=== PATIENT | female | born 1980 | race Caucasian/White ===

== ENCOUNTER 2017-09-03 14:01 | Emergency (ER) | payer MEDICAID ==
[2017-09-03 17:58] LABS: ADD MAN DIFF? NO
[2017-09-03 18:01] LABS: ABNORMAL IP MESSAGE 1; BASOPHILS % 0.4 % (0.0-2.0); EOSINOPHILS % 0.6 % (0.0-7.0); HEMATOCRIT 36.5 % (37.0-47.0); HEMOGLOBIN 12.2 g/dl (12.0-16.0); LYMPHOCYTES # 0.6 10^3/ul (0.8-2.9); LYMPHOCYTES % 7.9 % (15.0-51.0); MEAN CORPUSCULAR HEMOGLOBIN 27.3 pg (29.0-33.0); MEAN CORPUSCULAR HGB CONC 33.4 g/dl (32.0-37.0); MEAN CORPUSCULAR VOLUME 81.7 fl (82.0-101.0); MEAN PLATELET VOLUME 11.9 fl (7.4-10.4); MONOCYTE # 0.3 10^3/ul (0.3-0.9); MONOCYTES % 4.6 % (0.0-11.0); NEUTROPHILS % 85.6 % (39.0-77.0); PLATELET COUNT 172 10^3/UL (140-415); RED BLOOD COUNT 4.47 10^6/ul (4.20-5.40); RED CELL DISTRIBUTION WIDTH 13.2 % (11.5-14.5)
[2017-09-03] MEDS: SODIUM CHLORIDE 0.9% 1L BAG IV* (18:02)
[2017-09-03] MEDS: ACETAMINOPHEN 325 MG TAB PO (18:08)
[2017-09-03 18:09] LABS: POSITIVE DIFF @See below
[2017-09-03 18:22] LABS: ALANINE AMINOTRANSFERASE 118 IU/L (13-69); ALBUMIN 4.1 g/dl (3.3-4.9); ALBUMIN/GLOBULIN RATIO 1.24; ALKALINE PHOSPHATASE 64 IU/L (42-121); AMYLASE 88 U/L (11-123); ANION GAP 16 (8-16); ASPARTATE AMINO TRANSFERASE 130 IU/L (15-46); BILIRUBIN,INDIRECT 0.1 mg/dl (0-1.1); BILIRUBIN,TOTAL 0.1 mg/dl (0.2-1.3); BLOOD UREA NITROGEN 5 mg/dl (7-20); CALCIUM 9.7 mg/dl (8.4-10.2); CARBON DIOXIDE 21 mmol/L (21-31); CHLORIDE 103 mmol/L (97-110); CREATININE 0.51 mg/dl (0.44-1.00); GLUCOSE 124 mg/dl (70-220); LIPASE 110 U/L (23-300); POTASSIUM 3.8 mmol/L (3.5-5.1); SODIUM 136 mmol/L (135-144); TOTAL PROTEIN 7.4 g/dl (6.1-8.1)
[2017-09-03 19:39] LABS: ADD UMIC NO; UR ASCORBIC ACID NEGATIVE (NEGATIVE); UR BILIRUBIN (Dip) NEGATIVE (NEGATIVE); UR BLOOD (Dip) NEGATIVE (NEGATIVE); UR CLARITY CLEAR (CLEAR); UR COLOR YELLOW (YELLOW); UR GLUCOSE (Dip) NEGATIVE (NEGATIVE); UR KETONES (Dip) TRACE mg/dL (NEGATIVE); UR LEUKOCYTE ESTERASE (Dip) NEGATIVE Leu/ul (NEGATIVE); UR NITRITE (Dip) NEGATIVE (NEGATIVE); UR SPECIFIC GRAVITY (Dip) 1.006 (1.003-1.030); UR TOTAL PROTEIN (Dip) NEGATIVE (NEGATIVE); UR UROBILINOGEN (Dip) NEGATIVE (NEGATIVE)
== END 2017-09-03 20:20 | disposition home or self-care (01) ==
LOC: FTE 14:01
DX: O20.0 Threatened abortion (principal); R50.9 Fever, unspecified; R05 Cough; Z3A.14 14 weeks gestation of pregnancy
CPT/HCPCS: 36415; 76801; 80053; 81003; 82150; 83690; 84702; 85025; 86900; 86901; 87086; 87400; 96360; 96361; 99285-25

== ENCOUNTER 2017-10-17 14:28 | Outpatient (CLI) | payer MEDICAID ==
[2017-10-17 16:51] LABS: ADD UMIC NO; UR ASCORBIC ACID 40 mg/dL (NEGATIVE); UR BILIRUBIN (Dip) NEGATIVE (NEGATIVE); UR BLOOD (Dip) NEGATIVE (NEGATIVE); UR CALCIUM OXALATE CRYSTAL MODERATE /HPF (NONE SEEN); UR CLARITY SLIGHTLY CLOUDY (CLEAR); UR COLOR YELLOW (YELLOW); UR GLUCOSE (Dip) 1+ mg/dL (NEGATIVE); UR KETONES (Dip) NEGATIVE (NEGATIVE); UR LEUKOCYTE ESTERASE (Dip) NEGATIVE Leu/ul (NEGATIVE); UR NITRITE (Dip) NEGATIVE (NEGATIVE); UR RBC 12 /HPF (0-5); UR SPECIFIC GRAVITY (Dip) 1.029 (1.003-1.030); UR SQUAMOUS EPITHELIAL CELL FEW /HPF (FEW); UR TOTAL PROTEIN (Dip) NEGATIVE (NEGATIVE); UR UROBILINOGEN (Dip) 1+ mg/dL (NEGATIVE); UR WBC 1 /HPF (0-5)
== END 2017-10-17 17:45 | disposition home or self-care (01) ==
LOC: OBT 14:28 → L-D 14:31 → OBT 17:45
DX: O26.843 Uterine size-date discrepancy, third trimester (principal); O36.8130 Decreased fetal movements, third trimester, not applicable or unspecified; Z3A.34 34 weeks gestation of pregnancy
CPT/HCPCS: 76817; 81001; 81003

== ENCOUNTER 2018-02-06 15:14 | Outpatient (CLI) | payer MEDICAID ==
[2018-02-06 17:40] LABS: RUPTURE FETAL MEMBRANES NEGATIVE (NEGATIVE)
== END 2018-02-06 17:58 | disposition home or self-care (01) ==
LOC: OBT 15:14 → L-D 15:15 → OBT 17:58
DX: O62.9 Abnormality of forces of labor, unspecified (principal); O09.523 Supervision of elderly multigravida, third trimester; Z3A.37 37 weeks gestation of pregnancy
CPT/HCPCS: 76818; 84112

== ENCOUNTER 2018-02-13 10:34 | Inpatient (IN) | payer MEDICAID ==
[~2018-02-13 10:34] MED LIST: OXYTOCIN 30 UNITS/LR 500 ML BAG IV
[2018-02-13] MEDS: LACTATED RINGER'S 1,000 ML IV ×2 (11:30→15:06)
[2018-02-13 12:02] LABS: RUPTURE FETAL MEMBRANES NEGATIVE (NEGATIVE)
[2018-02-13] MEDS ORDERED: CARBOPROST 250 MCG INJ IM ×2 (15:30→19:00)
[2018-02-13] MEDS ORDERED: METHYLERGONOVINE 0.2 MG INJ IM ×2 (15:30→19:00)
[2018-02-13] MEDS ORDERED: OXYTOCIN 30 UNITS/LR 500 ML IV ×2 (15:30→19:00)
[2018-02-13] MEDS ORDERED: MISOPROSTOL 200 MCG TAB PR ×2 (15:30→19:00)
[2018-02-13] MEDS ORDERED: CEFAZOLIN 2 GM/50 ML (PMX) 50 ML IV (15:30)
[2018-02-13 15:32] LABS: WHITE BLOOD COUNT 5.8 10^3/ul (4.8-10.8)
[2018-02-13 15:32] LABS: ABNORMAL IP MESSAGE 1; HEMATOCRIT 40.7 % (37.0-47.0); HEMOGLOBIN 13.1 g/dl (12.0-16.0); MEAN CORPUSCULAR HGB CONC 32.2 g/dl (32.0-37.0); MEAN CORPUSCULAR VOLUME 83.9 fl (82.0-101.0); PLATELET COUNT 108 10^3/UL (140-415); RED BLOOD COUNT 4.85 10^6/ul (4.20-5.40); RED CELL DISTRIBUTION WIDTH 14.8 % (11.5-14.5)
[2018-02-13 15:33] LABS: POSITIVE DIFF @See below
[2018-02-13 15:34] LABS: ADD MAN DIFF? YES
[2018-02-13] MEDS: MAGNESIUM SULFATE 4 GM/100 ML 100 ML IV (15:41)
[2018-02-13 15:44] LABS: URIC ACID 4.4 mg/dl (3.1-7.9)
[2018-02-13 15:44] LABS: ALANINE AMINOTRANSFERASE 40 IU/L (13-69); ALBUMIN 3.4 g/dl (3.3-4.9); ALBUMIN/GLOBULIN RATIO 1.03; ALKALINE PHOSPHATASE 172 IU/L (42-121); ANION GAP 14 (8-16); ASPARTATE AMINO TRANSFERASE 28 IU/L (15-46); BILIRUBIN,INDIRECT 0.4 mg/dl (0-1.1); BILIRUBIN,TOTAL 0.4 mg/dl (0.2-1.3); BLOOD UREA NITROGEN 9 mg/dl (7-20); CALCIUM 9.7 mg/dl (8.4-10.2); CARBON DIOXIDE 21 mmol/L (21-31); CHLORIDE 108 mmol/L (97-110); CREATININE 0.59 mg/dl (0.44-1.00); GLUCOSE 65 mg/dl (70-220); POTASSIUM 3.9 mmol/L (3.5-5.1); SODIUM 139 mmol/L (135-144); TOTAL PROTEIN 6.7 g/dl (6.1-8.1)
[2018-02-13 15:50] LABS: INR 0.92; PROTIME 12.4 Sec (11.9-14.9)
[2018-02-13 15:51] LABS: PARTIAL THROMBOPLASTIN TIME 27.8 Sec (25.0-35.0)
[2018-02-13] MEDS: MAGNESIUM SULFATE 20 GM/500 ML 500 ML IV (16:08)
[2018-02-13 16:11] LABS: ANISOCYTOSIS 2+ (0-0); BAND NEUTROPHILS #M 0.2 10^3/ul (0.0-0.6); BAND NEUTROPHILS % (M) 4 % (0-4); EOSINOPHILS % (M) 3 % (0-7); ERYTHROBLAST% (NRBC) (M) 1 % (0-0); GIANT THROMBO% (M) 1 % (0-0); LYMPHOCYTES #M 1.4 10^3/ul (0.8-2.9); LYMPHOCYTES % (M) 25 % (15-51); MICROCYTOSIS 1+ (0-0); MONOCYTE #M 0.1 10^3/ul (0.3-0.9); MONOCYTES % (M) 2 % (0-11); PLATELET ESTIMATE DECREASED; POLYCHROMASIA 1+ (0-0); SEG NEUT #M 3.8 10^3/ul (1.6-7.5); SEGMENTED NEUTROPHILS (M) % 66 % (39-77); SMUDGE%M 4 % (0-0)
[2018-02-13] MEDS ORDERED: OXYTOCIN 10 UNIT INJ (17:31)
[2018-02-13] MEDS ORDERED: BUPIVACAINE 0.75%/DEXT (SPINAL) 2 ML INJ (17:31)
[2018-02-13] MEDS ORDERED: morphine SULFATE/PF (10 MG/10 ML) INJ (17:31)
[2018-02-13] MEDS ORDERED: PHENYLephrine (100 MCG/ML) 5ML SYG (17:31)
[2018-02-13] MEDS ORDERED: METOCLOPRAMIDE 10 MG INJ (18:05)
[2018-02-13] MEDS ORDERED: DEXAMETHASONE 4 MG/ML 1 ML INJ (18:05)
[2018-02-13] MEDS ORDERED: KETOROLAC 30 MG INJ (18:05)
[2018-02-13] MEDS ORDERED: ONDANSETRON 4 MG INJ (18:05)
[2018-02-13] MEDS ORDERED: morphine 2 MG INJ IV (19:00)
[2018-02-13] MEDS ORDERED: NALBUPHINE HCL (10 MG/1 ML) INJ IV (19:00)
[2018-02-13] MEDS ORDERED: LANOLIN 7 GM TUBE TOP (19:00)
[2018-02-13] MEDS ORDERED: ACETAMINOPHEN 500 MG TAB PO (19:00)
[2018-02-13] MEDS ORDERED: HYDROmorphONE 0.5 MG/0.5 ML SYG IV ×2 (19:00)
[2018-02-13] MEDS ORDERED: DIPHENHYDRAMINE 50 MG INJ IV (19:00)
[2018-02-13] MEDS ORDERED: NALOXONE (0.4 MG/ML) INJ IV (19:00)
[2018-02-13] MEDS ORDERED: HYDROCODONE/APAP (5/325) TAB PO (19:00)
[2018-02-13 19:18] LABS: ADD UMIC YES; UR ASCORBIC ACID NEGATIVE (NEGATIVE); UR BILIRUBIN (Dip) NEGATIVE (NEGATIVE); UR BLOOD (Dip) 1+ mg/dL (NEGATIVE); UR CLARITY CLEAR (CLEAR); UR COLOR YELLOW (YELLOW); UR GLUCOSE (Dip) 2+ mg/dL (NEGATIVE); UR KETONES (Dip) 1+ mg/dL (NEGATIVE); UR LEUKOCYTE ESTERASE (Dip) NEGATIVE Leu/ul (NEGATIVE); UR NITRITE (Dip) NEGATIVE (NEGATIVE); UR RBC 4 /HPF (0-5); UR SPECIFIC GRAVITY (Dip) 1.015 (1.003-1.030); UR TOTAL PROTEIN (Dip) 2+ mg/dl (NEGATIVE); UR UROBILINOGEN (Dip) NEGATIVE (NEGATIVE); UR WBC 2 /HPF (0-5)
[2018-02-13] MEDS: ONDANSETRON 4 MG INJ IV (19:45)
[2018-02-13] MEDS: OXYTOCIN 30 UNITS/LR 500 ML IV (19:50)
[2018-02-13] MEDS: morphine 2 MG INJ IV (20:31)
[2018-02-13] MEDS: SENNA/DOCUSATE NA (8.6MG/50MG) TAB PO (21:00)
[2018-02-14] MEDS: morphine 2 MG INJ IV (00:28)
[2018-02-14] MEDS: CEFAZOLIN 2 GM/50 ML (PMX) 50 ML IV ×3 (01:37→11:00)
[2018-02-14] MEDS: LACTATED RINGER'S 1,000 ML IV ×3 (07:09→23:00)
[2018-02-14 07:22] LABS: ADD MAN DIFF? NO
[2018-02-14 07:40] LABS: WHITE BLOOD COUNT 9.3 10^3/ul (4.8-10.8)
[2018-02-14 07:40] LABS: ABNORMAL IP MESSAGE 1; BASOPHILS % 0.2 % (0.0-2.0); EOSINOPHILS % 0.1 % (0.0-7.0); HEMATOCRIT 32.4 % (37.0-47.0); HEMOGLOBIN 10.3 g/dl (12.0-16.0); LYMPHOCYTES # 1.7 10^3/ul (0.8-2.9); LYMPHOCYTES % 17.8 % (15.0-51.0); MEAN CORPUSCULAR HEMOGLOBIN 26.8 pg (29.0-33.0); MEAN CORPUSCULAR HGB CONC 31.8 g/dl (32.0-37.0); MEAN CORPUSCULAR VOLUME 84.4 fl (82.0-101.0); MONOCYTE # 0.6 10^3/ul (0.3-0.9); MONOCYTES % 6.5 % (0.0-11.0); NEUTROPHILS % 75.1 % (39.0-77.0); PLATELET COUNT 122 10^3/UL (140-415); RED BLOOD COUNT 3.84 10^6/ul (4.20-5.40)
[2018-02-14 07:47] LABS: MEAN PLATELET VOLUME 15.1 fl (7.4-10.4); POSITIVE DIFF @See below
[2018-02-14 07:57] LABS: MAGNESIUM 2.1 mg/dl (1.7-2.5)
[2018-02-14] MEDS: SENNA/DOCUSATE NA (8.6MG/50MG) TAB PO ×2 (09:40→21:27)
[2018-02-14] MEDS: KETOROLAC 30 MG INJ IV (09:43)
[2018-02-14 15:57] LABS: RAPID PLASMA REAGIN NONREACTIVE (NR)
[2018-02-14] MEDS: CEFAZOLIN 2 GM/50 ML (PMX) 50 ML IVPB (17:35)
[2018-02-14] MEDS: OXYCODONE/ACETAMINOPHEN (5/325) TAB PO (17:45)
[2018-02-14] MEDS: IBUPROFEN 600 MG TAB PO ×2 (17:46→23:39)
[2018-02-15] MEDS: IBUPROFEN 600 MG TAB PO ×4 (06:04→23:39)
[2018-02-15] MEDS: OXYCODONE/ACETAMINOPHEN (5/325) TAB PO ×3 (06:20→19:27)
[2018-02-15] MEDS: LACTATED RINGER'S 1,000 ML IV (07:00)
[2018-02-15] MEDS: SENNA/DOCUSATE NA (8.6MG/50MG) TAB PO ×2 (09:21→20:54)
[2018-02-16] MEDS: OXYCODONE/ACETAMINOPHEN (5/325) TAB PO ×2 (03:31→09:08)
[2018-02-16] MEDS: IBUPROFEN 600 MG TAB PO ×2 (06:44→13:22)
[2018-02-16] MEDS: SENNA/DOCUSATE NA (8.6MG/50MG) TAB PO (09:06)
== END 2018-02-16 16:00 | disposition home or self-care (01) | DRG 766 ==
LOC: OBT 10:34 → L-D 10:34 → OBT 15:10 → L-D 15:10 → PP1 22:15
PROVIDERS: Obstetrics & Gynecology
PROC: 10D00Z1 Extraction of Products of Conception, Low, Open Approach (ICD-10-PCS; principal; 2018-02-13)
DX: O34.219 Maternal care for unspecified type scar from previous cesarean delivery (principal); O24.420 Gestational diabetes mellitus in childbirth, diet controlled; O13.4 Gestational [pregnancy-induced] hypertension without significant proteinuria, complicating childbirth; Z3A.38 38 weeks gestation of pregnancy; Z37.0 Single live birth
CPT/HCPCS: 80053; 81001; 83735; 84112; 84560; 85025; 85384; 85610; 85730; 86592; 86850; 86900; 86901; 88302; 99464

== ENCOUNTER 2019-04-07 19:30 | Emergency (ER) | payer MEDICAID ==
[2019-04-07] MEDS: KETOROLAC 60 MG INJ IM (20:57)
== END 2019-04-07 22:00 | disposition home or self-care (01) ==
LOC: FTE 22:00
DX: S76.012A Strain of muscle, fascia and tendon of left hip, initial encounter (principal); X50.1XXA Overexertion from prolonged static or awkward postures, initial encounter; Y92.9 Unspecified place or not applicable; Z79.4 Long term (current) use of insulin
CPT/HCPCS: 73502; 73510; 81025; 96372; 99284-25